=== PATIENT | male | born 1985 | race African-American/Black ===

== ENCOUNTER 2017-02-01 16:15 | Emergency (ER) | payer OTHER ==
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
[~2017-02-01 16:15] MED LIST: KEFLEX500 M1 PO; PEPCID40 MG PO; PREDNISONE PO; SELENIUM SULFIDE 2.5 TOP
[2017-02-01 16:28] LABS: INFLUENZA A NEG (NEG); INFLUENZA B POS (NEG)
== END 2017-02-01 18:08 | disposition home or self-care (01) ==
LOC: SED 16:15
PROVIDERS: Nurse Practitioner
DX: J10.1 Influenza due to other identified influenza virus with other respiratory manifestations (principal); F17.210 Nicotine dependence, cigarettes, uncomplicated; Z98.890 Other specified postprocedural states; Z79.899 Other long term (current) drug therapy
CPT/HCPCS: 71020; 87804; 94640; 99283; 99284

== ENCOUNTER 2017-04-02 20:37 | Emergency (ER) | payer OTHER ==
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
[2017-04-02] MEDS ORDERED: NO MEDICATIONS (20:46)
[2017-04-02] MEDS ORDERED: NAPROSYN-EC500 M1 DOB (22:03)
[2017-04-02] MEDS ORDERED: HYDROCODON-ACE1 EAC7 PO (22:03)
== END 2017-04-02 22:03 | disposition home or self-care (01) ==
LOC: SED 20:37
DX: S62.102A Fracture of unspecified carpal bone, left wrist, initial encounter for closed fracture (principal); F17.210 Nicotine dependence, cigarettes, uncomplicated; W19.XXXA Unspecified fall, initial encounter; Y92.009 Unspecified place in unspecified non-institutional (private) residence as the place of occurrence of the external cause
CPT/HCPCS: 29125; 73110; 73130; 96372; 99283; J1885